=== PATIENT | female | born 1970 | race Caucasian/White ===

== ENCOUNTER 2020-08-21 18:04 | Emergency (ER) | payer BC ==
[2020-08-21 18:20] VITALS: BP 135/81; PULSE 74; TEMP 98.1; BMI 27.3
[2020-08-21] MEDS ORDERED: valACYclovir HCL 1000 MG TABLET PO ONE (20:32)
[2020-08-21 20:58] LABS: PH,URINE 5.5 (5.0-8.0); URINE APPEARANCE CLEAR; URINE BILIRUBIN NEGATIVE (NEGATIVE); URINE COLOR YELLOW; URINE GLUCOSE (UA) NEGATIVE (NEGATIVE); URINE KETONE 1+ (NEGATIVE); URINE LEUK ESTERASE NEGATIVE (NEGATIVE); URINE NITRITE NEGATIVE (NEGATIVE); URINE PROTEIN NEGATIVE (NEGATIVE); URINE UROBILINOGEN 0.2 mg/dL (0.2-1.0)
[2020-08-21] MEDS ORDERED: valACYclovir HCL 500 MG TABLET (FP) ONE (21:00)
== END 2020-08-21 21:03 | disposition home or self-care (01) ==
LOC: JER 18:04
DX: R59.0 Localized enlarged lymph nodes (principal); B02.9 Zoster without complications
CPT/HCPCS: 76856-TC; 81003; 87086; 99284-25